=== PATIENT | male | born 1960 | race Caucasian/White ===

== ENCOUNTER 2020-07-26 12:35 | Emergency (ER) | payer OTHER ==
[~2020-07-26] VITALS: Ht 165.1 cm; Wt 85.0 kg
[2020-07-26] MEDS ORDERED: ONDANSETRON HCL 4MG/2ML INJ IV STA (13:00)
[2020-07-26] MEDS ORDERED: SODIUM CHLORIDE 0.9% 1,000 ML IV ONE (13:00)
[2020-07-26] MEDS ORDERED: MORPHINE SULFATE 4 MG/ML CPJ (NOT FOR IM USE) IV STA (13:00)
[2020-07-26] MEDS ORDERED: HYDR-4001 MT (15:37)
[2020-07-26 15:38] VITALS: BP 120/71
== END 2020-07-26 16:19 | disposition home or self-care (01) ==
LOC: ER 12:35
DX: M54.5 Low back pain (principal); Z88.6 Allergy status to analgesic agent
CPT/HCPCS: 72100; 96361; 96374; 96375; 99284; J2270; J2405; J7030